=== PATIENT | female | born 1980 | race Caucasian/White ===

== ENCOUNTER 2024-05-21 13:15 | Emergency (ER) | payer OTHER ==
[~2024-05-21] VITALS: Ht 170.2 cm; Wt 63.4 kg
[2024-05-21] MEDS ORDERED: HYDROXYZINE HCL50 MG PO (14:39)
[2024-05-21] MEDS ORDERED: SERTRALINE HCL200 MG PO (14:39)
[2024-05-21 16:20] VITALS: BP 119/72
[2024-05-22] MEDS ORDERED: NEXPLANON68 MG SUB-Q (07:27)
== END 2024-05-21 16:20 | disposition left against medical advice (07) ==
LOC: ED 13:15
DX: S61.217A Laceration without foreign body of left little finger without damage to nail, initial encounter (principal); Z53.21 Procedure and treatment not carried out due to patient leaving prior to being seen by health care provider
CPT/HCPCS: 73140

== ENCOUNTER 2024-05-22 07:16 | Emergency (ER) | payer OTHER ==
[~2024-05-22] VITALS: Ht 170.2 cm; Wt 63.7 kg
[~2024-05-22 07:16] MED LIST: HYDROXYZINE HCL50 MG PO; SERTRALINE HCL200 MG PO
--- OUTSIDE RECORDS SUMMARY | 2024-05-22 07:25 | XMS ---
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 No recent Security Events currently on file CRITERIA MET - [facility] - 2 Visits in 30 Days CARE PROVIDERS SHARA BLANKENSHIP Nurse Practitioner: 01/19/2020-Current PHONE: Unknown BIANCA TAMEZ Clinic/Center: Federally Qualified 08/08/2018-[facility] PHONE: [phone] JEANNIE SWANSON [facility]/Center: Federally Qualified 08/08/2018-[facility] ([facility] HEALTH - PHONE: [phone] -, [facility] Dentist: Medical Coding Specialist Marcos Kidd PHONE: [phone] -Bernabe- Dentist: Medical Coding Specialist [facility] PHONE: [phone] Lenora has no Care Guidelines for this patient. Lissy VISIT COUNT (12 MO.) 2 [facility] [place] TOTAL 2 NOTE: Visits indicate total known visits. ED/UCC VISIT TRACKING (12 MO.) 05/22/2024 07:18 [facility] [place] TYPE: Emergency COMPLAINT: - LT FINGER LACERATION 05/21/2024 13:17 [facility] [place] TYPE: Emergency COMPLAINT: - LT HAND PINKY LAC INPATIENT VISIT TRACKING (12 MO.) No inpatient visits to display in this time frame [email or web address]
[2024-05-22] MEDS ORDERED: NEXPLANON68 MG SUB-Q (07:27)
[2024-05-22] MEDS ORDERED: DIPHTH,PERTUSS(ACELL),TET VAC 0.5 ML SYRINGE IM ONE (07:45)
[2024-05-22 08:00] VITALS: BP 126/90
== END 2024-05-22 08:01 | disposition home or self-care (01) ==
LOC: ED 07:16
DX: S61.217A Laceration without foreign body of left little finger without damage to nail, initial encounter (principal); W29.8XXA Contact with other powered hand tools and household machinery, initial encounter; Z88.5 Allergy status to narcotic agent; Z79.899 Other long term (current) drug therapy; Z23 Encounter for immunization
CPT/HCPCS: 90471; 90715; 99282-25

== ENCOUNTER 2025-09-14 15:55 | Emergency (ER) | payer OTHER ==
[~2025-09-14] VITALS: Ht 165.1 cm; Wt 64.0 kg
[~2025-09-14 15:55] MED LIST changes: +NEXPLANON68 MG SUB-Q
[2025-09-14 17:26] VITALS: BP 124/74
== END 2025-09-14 17:27 | disposition home or self-care (01) ==
LOC: ED 15:55
DX: S61.216A Laceration without foreign body of right little finger without damage to nail, initial encounter (principal); W26.9XXA Contact with unspecified sharp object(s), initial encounter; Z79.899 Other long term (current) drug therapy; Z88.5 Allergy status to narcotic agent
CPT/HCPCS: 64450; 73130; 99283-25